=== PATIENT | male | born 1990 | race Caucasian/White ===

== ENCOUNTER → 2021-10-07 14:11 | Outpatient (CLI) | payer OTHER, SELFPAY | PROVIDERS: PCP Nurse Practitioner Family; Visit Provider Urology | DX: Z20.822 Contact with and (suspected) exposure to COVID-19 (principal) ==

== ENCOUNTER → 2021-10-09 09:28 | Outpatient (CLI) | payer OTHER, SELFPAY ==
[2021-10-09 09:30] LABS: MANUAL DIFFERENTIAL MANUAL DIFFERENTIAL (MANUAL DIFF)
[2021-10-09 09:42] LABS: Basophils # 0.1 K/mm3 (0-0.2); Basophils % 1.8 % (0.1-2.0); Eosinophils # 0.5 K/mm3 (0.0-0.4); Eosinophils % 7.7 % (0.1-12.0); Hematocrit 51.7 % (42.0-52.0); Lymphocytes # 2.7 K/mm3 (0.7-4.5); Lymphocytes % 38.7 % (10-50); Mean Corpuscular HGB Conc 32.8 g/dL (31.8-35.4); Mean Corpuscular Hemoglobin 32.2 pg (27.0-31.2); Mean Corpuscular Volume 98.1 fl (80-94); Mean Platelet Volume 8.4 fl (7.4-10.4); Monocytes # 0.4 K/mm3 (0.1-1.0); Monocytes % 5.6 % (1.7-9.3); Neutrophils # 3.2 K/mm3 (1.8-7.8); Neutrophils % 46.2 % (37.0-80.0); Platelet Count 310 K/mm3 (142-424); Red Blood Count 5.27 M/mm3 (4.60-6.20); Red Cell Distribution Width 14.3 % (11.5-17.5)
[2021-10-09 10:47] LABS: Eosinophils % 4 % (0-3); Lymphocytes % 40 % (10-50); Monocytes % 3 % (2-9); Neutrophils % 53 % (42-76); Platelet Estimate Normal; Total Cells Counted 100
[2021-10-09 10:49] LABS: Stomatocytes 2+
[2021-10-09 11:02] LABS: Anion Gap 15.2 mEq/L (5-15); Blood Urea Nitrogen 6 mg/dl (9-20); Calcium 9.7 mg/dl (8.4-10.2); Carbon Dioxide 28 mmol/L (22.0-30.0); Chloride 103 mmol/L (98-107); Estimated Glomerular Filt Rate 112 ml/min (>60); GFR (African American) 136 ML/MIN (>60); Glucose 100 mg/dl (74-100); Potassium 4.2 mmoL/L (3.5-5.1); Sodium 142 mmol/L (136-145)
== END ==
PROVIDERS: PCP Nurse Practitioner Family; Visit Provider Urology
DX: Z01.812 Encounter for preprocedural laboratory examination (principal); Z11.52 Encounter for screening for COVID-19; N49.2 Inflammatory disorders of scrotum; N50.819 Testicular pain, unspecified
CPT/HCPCS: 36415; 80048; 85007; 85014; 85018; 85048; 85049; C9803; U0003; U0005

== ENCOUNTER 2021-10-10 09:41 | Day surgery (SDC) | payer OTHER, SELFPAY ==
[2021-10-08 11:45] VITALS: BMI 26.4
[2021-10-10] VITALS (9 sets, daily range): BP systolic 102–139; BP diastolic 65–90; PULSE 80–98; RESP 14–18; TEMP 36.4–36.9; O2SAT 91–99
--- NOTE | 2021-10-10 09:45 | US_ITS ---
FINAL REPORT TECHNIQUE: Sonographic images of the testicles and scrotum were obtained in the longitudinal and transverse planes. CLINICAL HISTORY: abnormal testicular ultrasound 4-6 weeks ago at [facility] FINDINGS: The right testicle measures 3.7 x 3.2 x 2.6 centimeters. There is no intratesticular mass. The epididymis is within normal limits. No extratesticular mass is identified. There is no normal appearing left testicle. There is hyperemia in the left scrotal sac. An area of a vascularity could be necrotic or infarcted testicle. Color imaging reveals no evidence of testicular torsion. IMPRESSION: Normal right testicle. No normal left testicle possibly due to infarct or prior torsion. Hyperemia is likely inflammatory. Reviewed, Interpreted and Dictated by Ana Savage MD Transcribed by Arcadio Schultz Authenticated by Ana Savage MD on 10/10/2021 11:23:56 AM [facility]
--- NOTE | 2021-10-10 11:08 | P.PN_ITS ---
[facility] Anesthesia Checklist - Patient Identification Patient Identification: Arm Band - Structural Data Admitted From: Home Planned Operative Procedure/s: Scrotal Skin Debridement, Left Orchiectomy Consent for Planned Operative Procedure(s) Verified: Yes Verified Documents: Surgical Consent, History and Physical - NPO Status Verified Time NPO: 00:00 - Additional verifications Anesthesia Reactions: No Hx Blood Transfusions: No - Airway Assessment C-Spine Mobility Assessed: Yes (mp2) TMJ Mobility Assessed: Yes Dentition: Good Dentition - Neurological Assessment Level of Consciousness: Awake, Alert - Anesthesia Plan Anesthesia Risk discussed: Yes Anesthesia Plan: Verified ASA Class: II Anesthesia Type: General [facility] History I have reviewed the patient's past medical history: Yes Medical History: Denies:: Cancer, Diabetes Mellitus Type 1, Diabetes Mellitus Type 2, Internal Pacemaker *Have you ever received a pneumonia vaccine?: No *Have you received a flu vaccine this season?: No Anesthesia experience/problems:: nac Other Surgeries: Yes: No Previous Surgery. No: Pacemaker Amputation: No Fractures: No - *Social History Last grade of school completed: High school graduate Smoking Status: Current every day smoker Tobacco Type: cigarettes # Packs/Day (cigarettes): 2 #Yrs smoked (if former smoker): 15 Alcohol Intake: current Alcohol Intake Frequency:: a few times a week Substance Use Type: denies use *Occupational Status:: employed Housing: house Household Members: spouse *Travel in the last 8 weeks: None Family Hx:: Cancer, Diabetes, Asthma, Hypertension
--- NOTE | 2021-10-10 12:19 | HMH.ANESI ---
[facility] Anesthesia Record Part I Intake, IV Amount: 900 Estimated blood loss (mL): 10 Urine output (mL): 0 Blood Pressure: 104/88 SaO2: 91 Pulse Rate: 80 Respiratory Rate: 16 Temperature: 98.4 F Patient is:: Drowsy, Stable Stable to PACU at:: 12:15
--- NOTE | 2021-10-10 13:35 | P.OP_ITS ---
Date of procedure: 10/10/21 Pre-op Diagnosis:: Left testicular abscess Post-op Diagnosis:: Left testicular abscess with scrotal skin necrosis Procedure performed:: Simple left orchiectomy with debridement of skin Surgeon:: Tae Doty MD CIVIL STRUCTURAL ENGINEER:: Vishal Tan Anesthesia: LMA Estimated blood loss (mL): 5 Clinical Note:: 30-year-old white male with 2-month history of left testicular pain. He had 2 scrotal ultrasounds prior to my initial visit with him that were consistent with epididymal orchitis. He has been treated with antibiotics, restriction of strenuous activity each day and anti-inflammatories. His pain resolved last month and has been back to normal activities but on recent examination and some necrotic tissue emanating from the left anterior portion of the scrotal skin in the testicle appeared fixed to the skin underlying the necrosis. An ultrasound was performed this morning consistent with severe left epididymal orchitis and abscess formation. We have discussed simple left orchiectomy debridement of tissue. Operative findings:: Skin necrosis tract into the left hemiscrotum involving the testicle. Incision was made for simple left orchiectomy as the necrosis started from the testicle and spread outward. Operative note:: Patient taken to the operating room after informed consent was obtained. Placed on the operating table in the supine position and general anesthesia administered. Preoperative antibiotics and sequential compression devices placed. He was prepped and draped in the standard surgical fashion. A left-sided cord block was performed with Marcaine and local anesthetic also placed into the midline raphae. Debridement of the necrotic tissue in the left anterior hemiscrotum was performed and the necrotic tissue tracked through the tunical layers and into the scrotal compartment involving the testicle. The decision was made then to perform the left simple orchiectomy. A midline incision was made in the midline raphae. This was carried down through the dartos fascia and a lot of inflammatory tissue was present. We dissected above the inflammation and below and then once we found some normal tissue we were able to dissected around the testicle itself laterally inferiorly and posteriorly. We removed the tissue up through the area of the involved skin necrosis on the left side and circumscribed the skin to healthy tissue. This tissue was kept with the specimen. There was no evidence of any gross pus during the procedure. Once the testicle was freed from its surrounding adventitial tissue the cord structures were dissected superiorly and the vas was isolated from the vascular structures and a 3-0 chromic tie was placed proximally and distally and the vas ligated. The vascular structures were clamped proximally and distally and the tissue ligated and passed off as specimen. A stick tie was placed under the distal clamp with a 2-0 Vicryl and tied securely. Silk suture was placed under the proximal clamp and tied securely. The vascular structures were cauterized as well. The cord was allowed to retract up into the left inguinal canal and irrigation was performed with Ancef irrigation 1 L copious manner in the left scrotal compartment. Hemostasis achieved in the dartos fascia was closed with a running 3-0 chromic and the skin closed with horizontal mattress 3-0 chromic's. Compression dressing was applied the patient tolerated the procedure well there are no complications. Condition: stable Disposition: PACU Specimens:: Left testicle and necrotic skin and surrounding tissue Complications:: None
--- NOTE | 2021-10-14 08:17 | HMH.ANESII ---
[facility] Anesthesia Record Part II Discharge Time: 12:45 Destination: Surgical Day Care (OP Surgery) PACU nurse assessment reviewed?: Yes Patient Condition:: Good Anesthesia Complications:: None Swallowing reflex intact?: Yes Cyanosis?: No Blood Pressure: 115/76 Pulse Rate: 92 Temperature: 98.1 F Mental Status: Alert & Oriented Pain level:: 0 Nausea and/or vomitting:: None Intake, IV Amount: 0
[2021-10-14 08:18] VITALS: BP 115/76; PULSE 92; TEMP 36.7
== END 2021-10-10 13:20 | disposition home or self-care (01) ==
LOC: OR 09:42
PROVIDERS: PCP Nurse Practitioner Family; Visit Provider Urology
PROC: (CPT 11004; principal; 2021-10-10 12:00)
DX: I96 Gangrene, not elsewhere classified (principal); Z90.79 Acquired absence of other genital organ(s); Z72.0 Tobacco use; Z80.9 Family history of malignant neoplasm, unspecified; Z83.3 Family history of diabetes mellitus; Z82.5 Family history of asthma and other chronic lower respiratory diseases; Z82.49 Family history of ischemic heart disease and other diseases of the circulatory system; Z88.1 Allergy status to other antibiotic agents
CPT/HCPCS: 11004; 54520; 76870; 96374; J2405

== ENCOUNTER → 2023-08-03 16:03 | Outpatient (CLI) | payer OTHER, SELFPAY ==
[2023-08-03 16:50] LABS: Basophils # 0.1 K/mm3 (0-0.2); Basophils % 0.7 % (0.1-2.0); Eosinophils # 0.4 K/mm3 (0.0-0.4); Eosinophils % 2.8 % (0.1-12.0); Hematocrit 45.7 % (42.0-52.0); Hemoglobin 16.6 g/dL (14.1-18.0); Lymphocytes # 3.5 K/mm3 (0.7-4.5); Lymphocytes % 27.3 % (10-50); Mean Corpuscular HGB Conc 36.3 g/dL (31.8-35.4); Mean Corpuscular Hemoglobin 33.1 pg (27.0-31.2); Mean Corpuscular Volume 91.2 fl (80-94); Mean Platelet Volume 9.1 fl (7.4-10.4); Monocytes % 7.8 % (1.7-9.3); Neutrophils # 7.8 K/mm3 (1.8-7.8); Neutrophils % 61.3 % (37.0-80.0); Platelet Count 219 K/mm3 (142-424); Red Blood Count 5.01 M/mm3 (4.60-6.20); Red Cell Distribution Width 12.9 % (11.5-17.5); White Blood Count 12.8 K/mm3 (4.8-10.8)
[2023-08-03 17:06] LABS: Chloride 102 mmol/L (98-107); Potassium 4.3 mmoL/L (3.5-5.1); Sodium 139 mmol/L (136-145)
[2023-08-03 17:09] LABS: Alanine Aminotransferase 49 U/L (12-78); Albumin/Globulin Ratio 1.9 (1.1-1.8); Alkaline Phosphatase 95 U/L (38-126); Anion Gap 15.3 mEq/L (5-15); Aspartate Amino Transferase 52 U/L (17-59); Bilirubin,Total 0.4 mg/dl (0.2-1.3); Blood Urea Nitrogen 12 mg/dl (9-20); Carbon Dioxide 26 mmol/L (22.0-30.0); Estimated Glomerular Filt Rate 97 ml/min (>60); GFR (African American) 117 ML/MIN (>60); Globulin 2.7 g/dL (1.3-3.2); Total Protein,Serum 7.7 g/dl (6.3-8.2)
[2023-08-03 17:10] LABS: Calcium 9.3 mg/dl (8.4-10.2); Glucose 100 mg/dl (74-100)
== END ==
PROVIDERS: PCP Nurse Practitioner Family; Visit Provider Nurse Practitioner Family
DX: Z01.812 Encounter for preprocedural laboratory examination (principal); M25.511 Pain in right shoulder
CPT/HCPCS: 36415; 80053; 85025

== ENCOUNTER → 2023-08-05 10:29 | Outpatient (CLI) | payer OTHER, SELFPAY ==
--- NOTE | 2023-08-05 10:29 | MR_ITS ---
FINAL REPORT CLINICAL HISTORY: right shoulder pain, limited range of motion. pain worsens with lifting or raising arm. FINDINGS: Multiplanar MR imaging of the right shoulder was performed without contrast. Some of the images are degraded by motion artifact along the superior aspect of the shoulder. The tendons of the rotator cuff are intact without evidence of rotator cuff tear. There is mild AC joint arthrosis. No abnormal fluid is seen in the subacromial/subdeltoid bursa. Abnormal signal is seen in the superior labrum consistent with a SLAP tear. There is a fluid collection medial to the superior labrum measuring 14 mm consistent with a paralabral cyst. The long head of the biceps tendon is intact. No significant glenohumeral joint effusion is seen. There is no evidence of fracture or dislocation. The musculature is intact. There is no evidence of soft tissue mass. IMPRESSION: Findings consistent with a SLAP tear with a medial paralabral cyst. Authenticated and [facility]
== END ==
PROVIDERS: PCP Nurse Practitioner Family; Visit Provider Nurse Practitioner Family
DX: M25.511 Pain in right shoulder (principal)
CPT/HCPCS: 73221

== ENCOUNTER → 2023-08-17 12:19 | Outpatient (CLI) | payer OTHER, SELFPAY ==
--- NOTE | 2023-08-17 12:23 | XR_ITS ---
FINAL REPORT CLINICAL HISTORY: right shoulder pain COMPARISON: None FINDINGS: RIGHT SHOULDER Three views demonstrate no acute fracture or dislocation. The visualized joint spaces are normally aligned. The soft tissues are unremarkable. IMPRESSION: No acute process. Reviewed, Interpreted and Dictated by Joseph Walker MD Transcribed by Cadence Batista Authenticated and [facility]
== END ==
PROVIDERS: PCP Family Medicine; Visit Provider Orthopaedic Surgery
DX: S43.431A Superior glenoid labrum lesion of right shoulder, initial encounter (principal)
CPT/HCPCS: 73030

== ENCOUNTER → 2023-08-18 15:26 | Outpatient (CLI) | payer OTHER, SELFPAY ==
--- NOTE | 2023-08-18 15:34 | ECG_ITS ---
APPROVED REPORT Exam: Resting ECG HR:83 bpm ECG Measurements Heart Rate [address] 149 P 53 QRSd 87 QRS 79 QT 343 T 61 QTc 383 Conclusion SINUS RHYTHM INDETERMINATE AXIS NORMAL ECG UNCONFIRMED REPORT Electronically signed by : Joshua Eugene MD 08/18/2023 17:08:04
--- NOTE | 2023-08-18 15:51 | XR_ITS ---
FINAL REPORT CLINICAL HISTORY: Pre Op, smoker, shoulder sx FINDINGS: TWO-VIEW CHEST The heart size is normal. The mediastinum is normal. The lungs are clear. There is no pneumothorax. IMPRESSION: No acute cardiopulmonary process. Reviewed, Interpreted and Dictated by Joseph Walker MD Transcribed by Ирина Cosby Authenticated and [facility]
[2023-08-18 16:11] LABS: Basophils # 0.1 K/mm3 (0-0.2); Basophils % 0.8 % (0.1-2.0); Eosinophils # 0.3 K/mm3 (0.0-0.4); Eosinophils % 2.5 % (0.1-12.0); Hematocrit 46.9 % (42.0-52.0); Hemoglobin 16.8 g/dL (14.1-18.0); Lymphocytes # 3.4 K/mm3 (0.7-4.5); Lymphocytes % 32.3 % (10-50); Mean Corpuscular HGB Conc 35.8 g/dL (31.8-35.4); Mean Corpuscular Hemoglobin 31.8 pg (27.0-31.2); Mean Corpuscular Volume 88.8 fl (80-94); Mean Platelet Volume 9.1 fl (7.4-10.4); Monocytes # 0.7 K/mm3 (0.1-1.0); Monocytes % 6.6 % (1.7-9.3); Neutrophils % 57.8 % (37.0-80.0); Platelet Count 256 K/mm3 (142-424); Red Blood Count 5.28 M/mm3 (4.60-6.20); Red Cell Distribution Width 12.7 % (11.5-17.5); White Blood Count 10.5 K/mm3 (4.8-10.8)
[2023-08-18 16:19] LABS: Chloride 102 mmol/L (98-107); Potassium 3.7 mmoL/L (3.5-5.1); Sodium 138 mmol/L (136-145)
[2023-08-18 16:21] LABS: Alanine Aminotransferase 47 U/L (12-78); Aspartate Amino Transferase 31 U/L (17-59); Blood Urea Nitrogen 10 mg/dl (9-20); Estimated Glomerular Filt Rate 86 ml/min (>60); GFR (African American) 103 ML/MIN (>60)
[2023-08-18 16:22] LABS: Albumin Level 5.1 g/dl (3.5-5.0); Albumin/Globulin Ratio 1.9 (1.1-1.8); Alkaline Phosphatase 95 U/L (38-126); Anion Gap 12.7 mEq/L (5-15); Bilirubin,Total 0.8 mg/dl (0.2-1.3); Calcium 9.4 mg/dl (8.4-10.2); Carbon Dioxide 27 mmol/L (22.0-30.0); Globulin 2.7 g/dL (1.3-3.2); Glucose 96 mg/dl (74-100); Total Protein,Serum 7.8 g/dl (6.3-8.2)
== END ==
PROVIDERS: PCP Family Medicine; Visit Provider Orthopaedic Surgery
DX: Z01.818 Encounter for other preprocedural examination (principal); S43.431A Superior glenoid labrum lesion of right shoulder, initial encounter
CPT/HCPCS: 36415; 71046; 80053; 85025; 93005

== ENCOUNTER 2023-08-23 06:04 | Day surgery (SDC) | payer OTHER, SELFPAY ==
[2023-08-23] VITALS (11 sets, daily range): BP systolic 119–145; BP diastolic 71–97; PULSE 83–90; RESP 8–18; TEMP 36.2–43; O2SAT 91–97; BMI 29.0
--- NOTE | 2023-08-23 07:06 | P.PNANES_ITS ---
[facility] Disclaimer: The information contained in this section may have been updated after the patient was seen, as this information can be updated by other users. Medical History No significant past medical history Surgical History History of orchiectomy [place] teeth extracted Family History Other Family history of cancer Social History Smoking Status: Current every day smoker tobacco type: cigarettes packs per day: 2 alcohol intake: former substance use type: denies use current occupational status: employed Travel in the last 8 weeks: None household members: spouse housing: house current occupation: [employer] current occupational exposures/hazards: No caffeine: Yes [facility] Anesthesia Checklist Patient Identification Patient Identification: Arm Band and Verbal (Name & ) Structural Data Admitted From: Home Planned Operative Procedure/s: Shoulder arthroscopy Consent for Planned Operative Procedure(s) Verified: Yes NPO Status Verified Time NPO: 00:00 Additional verifications Anesthesia Reactions: No Hx Blood Transfusions: No Blood Transfusion Reaction: No Airway Assessment Mallampati Score:: Class III C-Spine Mobility Assessed: Yes TMJ Mobility Assessed: Yes Dentition: Good Dentition Neurological Assessment Level of Consciousness: Awake Hx Seizures: No Numbness or tingling in extremities: No Anesthesia Plan Anesthesia Risk discussed: Yes Anesthesia Plan: Verified ASA Class: II Anesthesia Type: General w/block
--- NOTE | 2023-08-23 09:33 | P.PNANES_ITS ---
[facility] Anesthesia Record Part I Anesthesia Record I Intake, IV Amount: 1,000 Hydration: Adequate Estimated blood loss (mL): 5 Urine output (mL): 0 Blood Products used (#): none Blood Pressure: 119/71 SaO2: 93 Pulse Rate: 83 Airway Patency: Patent Respiratory Rate: 16 Temperature: 97.4 F Patient is:: Drowsy and Stable Stable to PACU at:: 09:30
--- NOTE | 2023-08-23 09:36 | EXP.OP.NOTE ---
Date of procedure: 08/23/23 Pre-op Diagnosis:: Right shoulder SLAP tear Post-op Diagnosis:: Same Procedure performed:: Right shoulder arthroscopy with SLAP repair Surgeon:: Christ Warner DO RADIO TIME BUYER:: Vishal Tan Anesthesia: GETA and regional Estimated blood loss (mL): 0 Operative findings:: Unstable SLAP tear intact biceps tendon Operative note:: Patient was identified preoperatively. Right shoulder was marked with yes my initials. Underwent a block with anesthesia. Taken the operating room placed upon the operating bed. General anesthesia administered airway was secured. Patient was then placed in a lateral position with a beanbag with all bony prominences well-padded and axillary roll placed. Right arm was then prepped and draped within the arm lawler. Once prepped and draped final operative timeout performed to identify proper patient procedure and extremity. Everyone involved in the case agreed. There were no counter indications to beginning. He did receive preoperative antibiotics with clindamycin. Marking pen was used to carmina bony landmarks of the shoulder and standard portal sites. Skin knife is used to incise posterior viewing portal and blunt with trocar was placed in the glenohumeral joint. This was exchanged with a camera. I moved directly anteriorly above the subscapularis tendon where the anterior working portal was made and exchanged with a purple cannula. Probe was placed through the purple cannula and diagnostic arthroscopy began. The probe was placed in the shoulder and the biceps tendon was evaluated and found to be intact. There was however an unstable SLAP tear. Probe was placed showing detachment of the labrum from the glenoid. Decision was made for SLAP repair. Tissue was elevated and bed was rasped and lasso was used to pass a fiber tape through the labrum. And repair was performed with a push lock anchor. This process was repeated anterior to the biceps tendon. To give a good repair of the SLAP lesion. The probe was then used to pull the biceps tendon which was intact rotator cuff integrity was intact. Glenoid cartilage intact. Humeral head cartilage intact. No further pathology seen. Camera removed. Joint was drained. Skin was closed with nylon stitch. Sterile dressing placed. Patient waken anesthesia taken recovery in stable condition. Condition: stable Disposition: PACU Complications:: None apparent
--- NOTE | 2023-08-24 12:06 | EXP.ANES.II ---
[facility] Anesthesia Record Part II Anesthesia Record Part II Discharge Time: 10:00 Destination: Surgical Day Care (OP Surgery) PACU nurse assessment reviewed?: Yes Patient Condition:: Good Anesthesia Complications:: None Swallowing reflex intact?: Yes Airway Patency: Patent Cyanosis?: No Blood Pressure: 125/72 SaO2: 94 Respiratory Rate: 17 Pulse Rate: 90 Temperature: 97.2 F Mental Status: Alert & Oriented Pain level:: 0 Nausea and/or vomitting:: None Intake, IV Amount: 0 Hydration: Adequate
[2023-08-24 12:08] VITALS: BP 125/72; PULSE 90; RESP 17; TEMP 36.2; O2SAT 94
--- NOTE | 2023-10-12 23:40 | PC.NURSE ---
chart accessed for ortho paperwork
== END 2023-08-23 10:36 | disposition home or self-care (01) ==
PROVIDERS: PCP Family Medicine; Visit Provider Orthopaedic Surgery
PROC: (CPT 29805; principal; 2023-08-23 07:30)
DX: S43.431A Superior glenoid labrum lesion of right shoulder, initial encounter (principal); M25.511 Pain in right shoulder; F17.210 Nicotine dependence, cigarettes, uncomplicated
CPT/HCPCS: 29807; 96374; C1713; J2405

== ENCOUNTER 2023-10-12 16:00 | Outpatient (RCR) | payer OTHER, SELFPAY ==
--- NOTE | 2023-09-13 09:04 | HMH.PTOPEV ---
PT Outpatient Evaluation Rehab PT Outpatient Evaluation Start: 09/13/23 07:58 Freq: Status: Active Protocol: Document 09/13/23 07:58 PDESEROUX (Rec: 09/13/23 09:04 PDESEROUX [id number]) E-signed By Lj Diaz, PT Outpatient Therapy Subjective History Subjective History Pt. is a 32 year old male who presents to [facility] Outpatient Physical Therapy Services in [place] for the initial evaluation this date(09/13/23) w/ c/o subacute and constant RUE shldr. and elbow post- surgical P!, stiffness, and weakness S/P RUE shldr. Scope w/ SLAP Repair 3 weeks ago(pt. unable to recall specific surgery date at this time). Pt . reports complaining of RUE shldr. P! 6-7 months ago that kept getting worse, states having a SLAP tear after going to see the MD. Pt. denies remembering CRISTINE nor DOI for initial RUE shldr. injury that required surgery. Pt. reports initially icing RUE shldr. post surgery, but states he hasn't been icing as much. 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 Pt. also reports donning RUE shldr. sling at all times unless I'm doing nothing at home. Pt. RTMD 06/26. Pt. reports symptoms are a constant dull ache at rest that increases to sharp pain w/ activity including bathing self and sleeping. Current medication list unremarkable. PMH includes S/P wisdom tooth extraction. New diagnosis of cancer in past 12 No months? Chief Complaint Pain,Spasms,Stiff,Paresthesia, Weakness,Decreased Risk Assessment Analyst Strength Symptom Type Ache,Throb,Sharp,Dull,Stabbing ,Numbness,Shooting Symptoms Relieved By Rest/Positioning,Ice,Brace/ Support Symptoms Aggravated By Supine,Physical Activity, Lifting Prior Functional Limitations None Current Functional Limitations Reaching,Lifting,Housework, Dressing,Driving,Sleeping, Recreation Activity Symptom Description Constant and Continuous, Activity Dependent Level of pain today (0-10) 2 Pain scale - at its best (0-10) 1 Pain scale - at its worst (0-10) 7 Shoulder/Elbow Eval Shoulder Objective Measurements Palpation Tenderness tenderness shoulder exam standard right tenderness over the bicipital tendon right shoulder exam standard tenderness over the SA bursa shoulder right exam standard Shoulder Palpation Findings Tenderness Shoulder Palpation Overall Comment grade 3 +TTP to TTP assessment above Posture Shoulder Posture Sitting Position (R) Rounded,(R) Forward Shoulder Posture Standing Position (R) Rounded,(R) Forward Scapula Posture Sitting Position (R) Protracted,(R) Elevated Scapular Posture Standing Position (R) Protracted,(R) Elevated Flexibilty Deficits Latissmus Dorsi Muscle Length (R) Severe Tightness Pectoralis Minor Muscle Length (R) Severe Tightness Pectoralis Major Muscle Length (R) Severe Tightness Shoulder External Rotators Muscle Length (R) Moderate Tightness Shoulder Internal Rotators Muscle Length (R) Severe Tightness Supraspinatus Muscle Length (R) Severe Tightness Teres Major Muscle Length (R) Severe Tightness Upper Trapezius Muscle Length (R) Severe Tightness Levaetor Scapulae Muscle Length (R) Severe Tightness Shoulder ROM Right Shoulder ROM Limitations Soft Tissue Tightness,Muscle Weakness,Pain Shoulder Abduction Active Range of 53 Motion (degrees) Shoulder Abduction Passive Range of 77 Motion (degrees) Shoulder Flexion Active Range of Motion 64 (degrees) Query Text: Shoulder Flexion Passive Range of Motion 79 (degrees) Shoulder External Rotation Active Range +10 of Motion (degrees) Shoulder External Rotation Passive Range 11 of Motion (degrees) Shoulder Internal Rotation Active Range 31 of Motion (degrees) Shoulder Internal Rotation Passive Range 44 of Motion (degrees) Shoulder Extension Active Range of 0 Motion (degrees) Shoulder Extension Passive Range of 0 Motion (degrees) pain with active ROM shoulder exam right standard decreased ROM shoulder exam standard right Shoulder MMT Anterior Deltoid Strength Grade 3 Fair Lower Trapezius Strength Grade Not Tested Middle Trapezius Strength Grade Not Tested Rhomboids Strength Grade Not Tested Serratus Anterior Strength Grade Not Tested Upper Trapezius/Levator Scapulae 4- Good- Shoulder Abduction Strength Grade 3 Fair Shoulder Extension Strength Grade 3+ Fair+ Shoulder Flexion Strength Grade 3 Fair Infraspinatus/Teres Minor Strength Grade 3 Fair Shoulder External Rotation Strength 3 Fair Grade Middle Deltoid Strength Strength Grade 3 Fair Shoulder Internal Rotation Strength 3+ Fair+ Grade Posterior Deltoid Strength Grade 3+ Fair+ Subscapularis Muscle Grade 3+ Fair+ Supraspinatus Strength Grade 3 Fair Shoulder Strength Patient Testing Sitting Position Shoulder Muscle Tone Shoulder Flexor Muscle Tone Description Severe Hypertonicity Shoulder Extensors Muscle Tone Severe Hypertonicity Description Shoulder Lateral Rotator Muscle Tone Severe Hypertonicity Description Elbow Objective Measurements Accessory Movements Right Shoulder Girdle Accessory Movements that Glenohumeral Ant [place], Elicit Symptoms Glenohumeral Post [place] Outpatient Therapy Assessment Impairments Problems/Impairmments Palpation Tenderness,Impaired Range of Motion,Impaired Strength,Impaired Driving, Impaired Lifting,Impaired Dressing,Impaired Shower/ Bathing,Impaired Household Care,Impaired Recreational Activities,Impaired Work Activities,Impaired Desk/ Computer Activities,Subjective C/O Pain,Impaired Self Care/ Self Management Prognosis Rehab Potential Good Comment w/ HEP compliancy and S/P protocol compliancy Clinical Impression Consistent with Diagnosis Yes Consistent with S/P R shldr. scope w/ SLAP repair Short Term Goals Number of Weeks 2 Decreased Palpation Tenderness Yes: grade 1-2 +TTP to TTP assessment above Decrease Subjective C/O Pain Yes: worse:02/10 Patient to be Ind w/ HEP Yes Gluing Machine Operator Automatic Goals Number of Weeks 4 Decreased Palpation Tenderness Yes: grade 1 +TTP to TTP assessment above Increase Range of Motion Yes: RUE shldr. PROM WNL, 50% norms AROM grossly Increase Strength Yes: 4+ to 5/ RUE shldr./ elbow MMT scores grossly Improve Transfers Yes: Pt. will be able to push self using RUE out of bed w/o difficulty Increase Ability to Drive/Ride in Car Yes: Pt. will be able to operate steering wheel w/ RUE w/o difficulty Restore Ability to Lift Objects Overhead Yes Improve Ability to Dress Self Yes: Pt. will be able to dress /undress self w/o difficulty Improve Ability to Shower/Bathe Self Yes Improve Ability For Household Care Yes Improve Tolerance to Work Activities Yes Improve Tolerance to Desk/Computer Yes Activities Improve Quick Dash Score Yes Decrease Subjective C/O Pain Yes: worse:-11/13 Improve Self Care/Self Management Yes Patient to be Ind w/ Advanced HEP Yes Outpatient Therapy Plan of Care Treatment Plan May Include Therapeutic Exercise Including Home Yes Exercise Program Manual Therapy Techniques Yes Neuromuscular Re-education Yes Therapeutic Activities to Return to Yes Previous Functional/Work Level ADL/Self Care Education Yes Dry Needling Yes Thermal Modalities Yes Electrical Stimulation Yes Ultrasound/Phonophoresis Yes Iontophoresis Yes Vasopneumatic Compression Pump Yes Massage Yes Eval/Re-Eval Yes Frequency Times per week 2 Duration Number of Weeks 4 Addendums This patient is a candidate for social No or vocational rehab? Patient/Guardian verbally acknowledges Yes understanding of treatment program and consents to further treatment? Patient/Guardian verbally acknowledges Yes understanding of diagnosis, prognosis and goals for treatment? Eval Complexity PT Charges 02194 - Low Complexity PHYSICIAN CERTIFICATION: I certify the specified therapy services for Jagjit Prather are required, authorized, and reviewed every 30 days.
== END 2023-11-29 14:55 | disposition home or self-care (01) ==
LOC: PT 16:00
PROVIDERS: PCP Family Medicine; Visit Provider Orthopaedic Surgery
DX: S43.431A Superior glenoid labrum lesion of right shoulder, initial encounter (principal); Z98.890 Other specified postprocedural states
CPT/HCPCS: 97010; 97014; 97110; 97140; 97163; 97164; 97530; G0283